=== PATIENT | female | born 1935 | race Caucasian/White ===

== ENCOUNTER 2018-11-06 15:59 | Emergency (ER) | payer SELFPAY ==
[2018-11-06 16:17] VITALS: BP 145/68
[2018-11-06] MEDS ORDERED: [UNRECOGNIZED DRUG - OTHER] PO (16:25)
[2018-11-06] MEDS ORDERED: METOPROLOL (16:25)
[2018-11-06] MEDS ORDERED: ATOR20TA MT (16:25)
[2018-11-06] MEDS ORDERED: LOSA50TA20 MT (16:25)
== END 2018-11-06 17:50 | disposition left against medical advice (07) ==
LOC: ER 15:59
DX: R11.10 Vomiting, unspecified (principal); R10.9 Unspecified abdominal pain; Z53.21 Procedure and treatment not carried out due to patient leaving prior to being seen by health care provider